=== PATIENT | female | born 1975 | race Caucasian/White ===

== ENCOUNTER 2024-04-22 17:59 | Emergency (ER) | payer OTHER, SELFPAY ==
[2024-04-22 18:01] VITALS: BP 138/76
[2024-04-22 18:26] LABS: % Basophils 0.5 % (0-2); % Eosinophils 0.9 % (0-6); % Immature Granulocytes 0.1 % (0-0.5); % Lymphocytes 16.5 % (20.5-51.1); % Monocytes 5.9 % (1.7-9.3); % Neutrophils 76.1 % (42.2-75.2); Absolute Eosinophils 0.1 10^3/uL (0-0.7); Absolute Lymphocytes 1.3 10^3/uL (1.2-3.4); Absolute Monocytes 0.5 10^3/uL (0.1-0.6); Absolute Neutrophils 5.9 10^3/uL (1.4-6.5); Hematocrit 34.8 % (37.0-47.0); Hemoglobin 11.3 g/dL (12.0-16.0); Mean Corp Hgb Conc. 32.5 g/dL (33.0-37.0); Mean Corpuscular Hgb 23.7 pg (27.0-31.0); Mean Corpuscular Volume 73.1 fL (81.0-99.0); Mean Platelet Volume 9.6 fL (7.4-10.4); Nucleated Red Blood Cells % 0 %; Platelet Count 429 10^3/uL (130-400); Red Blood Cell Count 4.76 10^6/uL (4.20-5.40); Red Cell Dist. Width 16.1 % (11.5-14.5); White Blood Cell Count 7.8 10^3/uL (4.8-10.8)
[2024-04-22 18:34] LABS: INR 1.05; PT 13.5 Sec (11.4-14.6)
[2024-04-22 18:39] LABS: HCG, Serum Qualitative Screen Negative
[2024-04-22 18:43] LABS: ALT (SGPT) 16 U/L (0-35); AST (SGOT) 21 U/L (14-36); Albumin 4.6 g/dl (3.5-5.0); Alkaline Phosphatase 74 U/L (38-126); Blood Urea Nitrogen 5 mg/dl (7-17); Calcium 9.6 mg/dl (8.4-10.2); Carbon Dioxide 21 mmol/L (22-30); Chloride 105 mmol/L (98-107); Glucose 111 mg/dl (70-99); Potassium 3.5 mmol/L (3.5-5.1); Sodium 137 mmol/L (135-145); Total Bilirubin 0.4 mg/dl (0.2-1.3); Total Protein 7.5 g/dl (6.3-8.2); eGFR > 60.00
[2024-04-22 18:50] LABS: D-Dimer 0.57 ug/mlFEU (0.00-0.50)
[2024-04-22 19:02] LABS: Troponin I 0.013 ng/ml
[2024-04-22 19:08] VITALS: BMI 29.0
[2024-04-22 19:09] VITALS: BP 121/89
[2024-04-22] MEDS: NSS 1000 IV (19:20)
[2024-04-22] MEDS: ZOFRAN 4 MG IV (19:21)
[2024-04-22 19:41] LABS: COVID-19 Antigen Negative (Negative)
[2024-04-22 20:08] VITALS: BP 126/60
--- NOTE | 2024-04-22 20:59 | ED.GENMED ---
History of Present Illness
General
Chief Complaint: Breathing Problem
Source: patient
Exam Limitations: none
Time Seen by Provider: 04/22/24 18:38
Nursing documentation reviewed up to this point in time: agreed with
History of Present Illness
History of Present Illness:
Patient states she woke this AM with a migraine like headache. Hx of migraines. Took an Excedrin migraine and symptoms improved. She then became nauseated and feeling shaky and weak. Took BP at home and readings were high. Went to and was
referred here for eval. Denies fever/chills, n/v/d. No recent illness. Reports decreaed appetite.
Past History
Past History
ED Past Medical History: GERD
ED Past Surgical History:
Social History
Tobacco: Non-smoker
Alcohol: Occasional
Drug: None
Review of Systems
Review of Systems
Allergies reviewed?: Yes
All Other Systems: ROS reviewed and negative except as documented in HPI and ROS
Constitutional: Reports no symptoms
EENT: Reports no symptoms
Respiratory: Reports trouble breathing
Cardiac: Reports no symptoms
ABD/GI: Reports other (decreased appetite)
: Reports no symptoms
Musculoskeletal: Reports no symptoms
Skin: Reports no symptoms
Neurological: Reports weakness
Psychiatric: Reports no symptoms
Phy Exam
General Physical Exam
General Presentation: well appearing and no apparent distress
General age: appears stated age
General Skin: warm and dry
General Habitus: normal
Cardiovascular Exam
Cardiovascular Exam: regular rate/rhythm and no edema
Pulmonary Exam
Pulmonary Exam: lungs clear and no respiratory distress
Gastrointestinal Exam
Gastrointestinal Exam: non tender and soft
Musculoskeletal Exam
Musculoskeletal Exam: full ROM and neuro vasc intact
Skin Exam
Skin Exam: normal color, warm/dry and no rash
Psychiatric Exam
Psychiatric Exam: normal mood/affect
Scores
Heart Failure Risk
Heart Failure Risk Score: Not Applicable
Course
Orders/Labs/Results
Orders:
Orders
04/22/24 18:05
Electrocardiogram (*1) Urgent
Reason for Study: Shortness of Breath
EKG- Treatment ONCE
Test Result ONCE
04/22/24 18:17
Complete Blood Count/With Diff Urgent
Comprehensive Metabolic Panel Urgent
D-Dimer Urgent
Comment: ADD ON
HCG, Serum Qualitative Screen Urgent
Prothrombin Time Urgent
Troponin I Urgent
04/22/24 18:40
Add On- LAB Urgent
Tests Added?: DDimer
04/22/24 19:08
CT Chest Pe Study Urgent
Comment:
Reason For Exam: SOB elevateddimer
0.9% Sodium Chloride 1000 ml [Nss] 1,000 ml IV BOLUS
Ondansetron Injectable [Zofran] 4 mg IV NOW STA
04/22/24 19:19
COVID-19 Antigen Urgent
Source: Nasal Swab
Abnormal Lab Results
04/22/24
18:17
Hgb 11.3 L g/dL
(12.0-16.0)
Hct 34.8 L %
(37.0-47.0)
MCV 73.1 L fL
(81.0-99.0)
MCH 23.7 L pg
(27.0-31.0)
MCHC 32.5 L g/dL
(33.0-37.0)
RDW 16.1 H %
(11.5-14.5)
Plt Count 429 H 10^3/uL
(130-400)
Neutrophils % 76.1 H %
(42.2-75.2)
Lymphocytes % 16.5 L %
(20.5-51.1)
D-Dimer 0.57 H ug/mlFEU
(0.00-0.50)
Carbon Dioxide 21 L mmol/L
(22-30)
BUN 5 L mg/dl
(7-17)
Glucose 111 H mg/dl
(70-99)
04/22/24 18:17
04/22/24 18:17
Vital Signs
Initial and Last Documented VS:
Initial Vital Signs
Temp Pulse Resp BP Pulse Ox
99.0 F 76 18 138/76 100
04/22/24 18:01 04/22/24 18:01 04/22/24 18:01 04/22/24 18:01 04/22/24 18:01
Last Documented Vital Signs
Temp Pulse Resp BP Pulse Ox
99.0 F 68 19 126/60 98
04/22/24 18:01 04/22/24 20:45 04/22/24 20:45 04/22/24 20:08 04/22/24 20:45
*Radiology
Radiology exam reviewed: radiology read reviewed
*Pulse Oximetry
Patient hypoxic: no
*Critical Care Note
Total Time (30-74mins, 75-104mins- exclusive of procedures): Not Applicable
Update Note
Update Note:
Patient to ED with complaint of feeling SOB and weak today. Labs, CT results reviewed with patient. No concerning findings on exam today. SHe is discharged home, will follow up with [facility]maraz instructions on s/s tor eturn to ED and she is
agreable to plan
ED Attending Note
-
Portions of this chart may have been created with voice recognition software.� Occasional wrong word or��sound alike� substitutions may have occurred due to the inherent limitations of voice recognition software.
Discharge Plan
Departure
Patient Disposition: Home (Routine Discharge)
Date of Disposition: 04/22/24
Time of Disposition: 20:56
Patient with high blood pressure during this ER visit?: No
Condition: Good
Discharge Problem:
Weakness, Shortness of breath
Instructions: Shortness of Breath (Dyspnea) (DC), Weakness
Prescriptions:
No Action
cetirizine [Zyrtec] 10 mg Tablet
10 mg PO DAILY
Pepcid
20 mg PO DAILY
Activity Restrictions/Additional Instructions:
Follow up with your family doctor. Retun to the emergency department immediately for any changes in/worsening of your symptoms.
Interventions
Interventions:
*Risk Screen - Suicide Last Done: 04/22/24 18:01
*General Assessment Last Done: 04/22/24 18:01
*Neglect/Abuse Screening Last Done: 04/22/24 18:01
ED- Fall Risk Assessment Last Done: 04/22/24 19:23
*Nursing Disposition Last Done: 04/22/24 21:11
ED- Cardiac Assessment Last Done: 04/22/24 19:23
ED- Pulmonary Assessment Last Done: 04/22/24 19:23
Discharge Date and Time
Discharge Date/Time: 04/22/24 21:11
Print Language: [id number]
== END 2024-04-22 21:11 | disposition home or self-care (01) ==
LOC: EMR 17:59
PROVIDERS: Nurse Practitioner; EMERGENCY PHYSICIAN Emergency Medicine; FAMILY PHYSICIAN Family Medicine
DX: R51.9 Headache, unspecified (principal); R06.02 Shortness of breath; R53.1 Weakness; R11.0 Nausea; R42 Dizziness and giddiness; Z11.52 Encounter for screening for COVID-19; K21.9 Gastro-esophageal reflux disease without esophagitis
CPT/HCPCS: 99285; 96361; 96374; 71275; 80053; 84484; 84703; 85025; 85379; 85610; 87811; 93005; Q9967